=== PATIENT | male | born 1950 | race Caucasian/White ===

== ENCOUNTER → 2018-08-15 | Outpatient (CLI) | payer OTHER ==
[2018-08-15 08:51] LABS: BASOPHILS % (AUTO) 0.9 % (0.0-5.0); EOSINOPHILS % (AUTO) 3.4 % (0.0-8.0); HEMATOCRIT 46.8 % (42-54); LYMPHOCYTES % (AUTO) 30.3 % (21.0-51.0); MEAN CORPUSCULAR HEMOGLOBIN 31.5 pg (27.0-33.0); MEAN CORPUSCULAR HGB CONC 34.4 g/dL (32.0-36.0); MEAN CORPUSCULAR VOLUME 91.6 fL (79-99); MONOCYTES % (AUTO) 8.9 % (3.0-13.0); NEUTROPHILS % (AUTO) 56.5 % (40.0-77.0); NUCLEATED RED BLOOD CELLS 0.2 % (0.0-0.19); PLATELET COUNT (AUTO) 191 K/uL (130-400); RED BLOOD CELL COUNT(AUTO) 5.11 MIL/uL (4.50-6.20); RED CELL DISTRIBUTION WIDTH 13.4 % (11.0-15.5); WHITE BLOOD COUNT (AUTO) 4.3 K/uL (4.8-10.8)
[2018-08-15 09:09] LABS: ALBUMIN 3.8 g/dL (3.5-5.0); BILIRUBIN,TOTAL 0.7 mg/dL (0.2-1.0); CREATININE 1.3 mg/dL (0.5-1.5); MAGNESIUM 2.1 mg/dL (1.80-2.40); PHOSPHORUS 2.9 mg/dL (2.5-4.9); POTASSIUM 4.4 mmol/L (3.5-5.1); URIC ACID 6.6 mg/dL (2.6-7.2)
== END | disposition home or self-care (01) ==
LOC: LAB 08-14 10:43
PROVIDERS: ATTEND Neurological Surgery
DX: R53.83 Other fatigue (principal)
CPT/HCPCS: 36415; 80053; 80061; 83735; 84100; 84550; 85025

== ENCOUNTER 2019-07-16 16:32 | Emergency (ER) | payer OTHER ==
[2019-07-16] MEDS ORDERED: TRAMADOL HCL 50 MG TABLET ONE (16:59)
[2019-07-16] MEDS ORDERED: IBUPROFEN 600 MG TABLET ONE (16:59)
[2019-07-16] MEDS ORDERED: AMOXICILLIN 500 MG CAPSULE PO ONE (16:59)
== END 2019-07-16 18:04 | disposition home or self-care (01) ==
LOC: EDH 16:32
DX: K04.7 Periapical abscess without sinus (principal); L03.211 Cellulitis of face; Z88.8 Allergy status to other drugs, medicaments and biological substances

== ENCOUNTER 2021-02-26 09:36 | Emergency (ER) | payer OTHER ==
[~2021-02-26] VITALS: Ht 180.3 cm; Wt 83.5 kg
[2021-02-26 09:37] VITALS: BP 148/75
[2021-02-26] MEDS ORDERED: KETOROLAC 60 MG VIAL (30MG/ML) ONE (09:48)
[2021-02-26] MEDS ORDERED: LIDOCAINE 5% TOPICAL PATCH TP ONE ×2 (09:49→10:00)
[2021-02-26] MEDS ORDERED: ACETAMINOPHEN 500 MG TABLET ONE (09:49)
[2021-02-26] MEDS ORDERED: KETOROLAC 60 MG VIAL (30MG/ML) IM ONE (10:00)
[2021-02-26] MEDS ORDERED: ACETAMINOPHEN 500 MG TABLET PO ONE (10:00)
[2021-02-26] MEDS ORDERED: ORPH100 PO (10:32)
[2021-02-26] MEDS ORDERED: NAPR-1180 PO (10:32)
[2021-02-26] MEDS ORDERED: LIDOP TD (10:32)
== END 2021-02-26 11:05 | disposition home or self-care (01) ==
LOC: EDH 09:36
DX: S46.001A Unspecified injury of muscle(s) and tendon(s) of the rotator cuff of right shoulder, initial encounter (principal); X58.XXXA Exposure to other specified factors, initial encounter; Y93.89 Activity, other specified; Y92.89 Other specified places as the place of occurrence of the external cause; Y99.8 Other external cause status
CPT/HCPCS: 73030; 96372; 99283; J1885

== ENCOUNTER → 2022-01-16 | Outpatient (CLI) | payer MEDICARE, OTHER ==
[~2022-01-16] MED LIST: LIDOP TD; NAPR-1180 PO; ORPH100 PO
== END | disposition home or self-care (01) ==
LOC: ICE 09:25
PROVIDERS: ATTEND Hospitalist
DX: U07.1 COVID-19 (principal)
CPT/HCPCS: 87426